=== PATIENT | male | born 1955 | race Caucasian/White ===

== ENCOUNTER → 2021-04-05 | Outpatient (CLI) | payer OTHER, MEDICAID ==
--- NOTE | 2021-04-07 11:11 | Diagnostic Imaging Report ---
PET/CT INDICATION: Brain mass TECHNIQUE: PET/CT imaging was obtained from the base of the skull through the pelvis after the administration of 14.04 mCi of F-18 fluorodeoxyglucose into the left antecubital fossa. Limited CT imaging was utilized for localization and attenuation correction purposes. The low energy CT utilized for attenuation correction is not considered to be of high enough spatial resolution to allow in and of itself a separate anatomical analysis. Height: 6 feet. Weight 200 pounds. Blood glucose 120 There are no prior PET/CT examinations available for comparison. 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 There also appear to be postsurgical changes consistent with a prior craniotomy involving the left parietal bone. On this study, that cystic mass is again identified on the CT images. This seems similar in size to the prior exam. The rim of this lesion shows a maximum SUV of only 3.9. Consequently, this finding is suspicious but not conclusive for malignancy. The mass in the right lung seen previously is again evident and not significantly changed in size or appearance. This mass has an SUV of 10.3 and consequently should be considered neoplastic until proven otherwise. There is also diffusely increased hypermetabolic activity throughout both lungs. The CT images do show alveolar/interstitial infiltrates involving both lungs which were not clearly present on the prior study. These findings could be secondary to pneumonia, pulmonary edema or a combination of both. It would be unlikely that this is related to neoplastic disease. The CT exam also noted an indeterminate 12 mm nodule associated with the right adrenal gland. That nodule is not hypermetabolic. There was also a 6 mm indeterminate nodule in the liver/section 7//8. There is no hypermetabolic activity associated with the liver to suggest metastatic disease. There is no other hypermetabolic activity noted that would indicate malignancy. Physiologic activity is seen in the kidneys, bowel and bladder. The images through the lower extremities are unremarkable for any abnormal activity that would indicate the presence of malignancy. IMPRESSION: 1. The rim-enhancing mass in the left parietal lobe near the vertex of the skull seen previously is again evident and does not appear to have changed in size. The rim-enhancing portion of this lesion shows a maximum SUV of 3.9. Consequently, this is suspicious although not conclusive for neoplastic disease. 2. The mass in the right lung seen previously is hypermetabolic and consequently should be considered neoplastic until proven otherwise. 3. There is no other hypermetabolic activity seen to suggest malignancy. 4. However, there is diffusely increased hypermetabolic activity throughout both lungs. This is more likely due to an underlying pneumonia, pulmonary edema or a combination of both. It would be less likely that this is malignant in nature. 5. These results will be discussed with Dr. Clifton Palmer. Dictated on workstation # [id number]
== END ==
LOC: RAD 08:15
PROVIDERS: ATTEND Internal Medicine Hematology & Oncology
DX: G93.9 Disorder of brain, unspecified (principal); R91.8 Other nonspecific abnormal finding of lung field
CPT/HCPCS: 78816; A9552